=== PATIENT | female | born 1990 | race Two or more races ===

== ENCOUNTER 2017-08-25 19:49 | Emergency (ER) | payer MEDICAID ==
[2017-08-25] MEDS ORDERED: Metoclopramide 10 MG/2 ML SDV IV ONE (20:59)
[2017-08-25] MEDS ORDERED: Ketorolac 30 MG/ML SDV IVPUSH ONE (20:59)
[2017-08-25] MEDS ORDERED: Ondansetron 4 MG/2 ML SDV IVPUSH ONE (20:59)
[2017-08-25] MEDS ORDERED: Sodium Chloride 0.9% 1,000 ML IV ONE (20:59)
[2017-08-25] MEDS ORDERED: diphenhydrAMINE 50 MG/ML SDV IVPUSH ONE (20:59)
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
== END 2017-08-25 22:43 | disposition home or self-care (01) ==
LOC: MW.ED 19:49
DX: R51 Headache (principal)
CPT/HCPCS: 96361; 96374; 96375; 99283; J1200; J1885; J7040